=== PATIENT | female | born 1985 | race Two or more races ===

== ENCOUNTER 2024-02-13 19:07 | Emergency (ER) | payer SELFPAY ==
[2024-02-13] MEDS: Ketorolac 30 MG/ML SDV IM ONE (20:21)
== END 2024-02-13 21:47 | disposition home or self-care (01) ==
LOC: JD.ED 19:07
DX: M25.512 Pain in left shoulder (principal); X50.9XXA Other and unspecified overexertion or strenuous movements or postures, initial encounter; Y99.0 Civilian activity done for income or pay
CPT/HCPCS: 73020-26-LT; 73020-LT; 96372; 99283; J1885